=== PATIENT | female | born 1965 | race African-American/Black ===

== ENCOUNTER 2016-11-15 21:12 | Emergency (ER) | payer OTHER ==
[~2016-11-15] VITALS: Ht 167.6 cm; Wt 162.0 kg
[~2016-11-15 21:12] MED LIST: ADULT LOW DOSE81 M1 PO; ADVAIR 250/501 DISK IH; ALBUTEROL SULF8.5 GM IH; ATIVAN0.5 MG PO; Aspirin E.C. PO; Ativan PO; BREO ELLIPTA 21 EACH IH; CELEXA20 MG PO; CLEOCIN300 MG PO; CLINDAMYCIN HC300 MG PO; DOXYCYCLINE HY100 M1 PO; DOXYCYCLINE HY100 MG PO; Diflucan PO; FLONASE16 G1 BOTH NARES; FUROSEMIDE40 MG PO; GABAPENTIN300 MG PO; GLUCOPHAGE500 MG PO; KEFLEX500 MG PO; LISINOPRIL10 MG PO; LISINOPRIL5 MG PO; Lasix PO; METFORMIN HCL500 MG PO; MYCELEX10 MG PO; NON-ASPIRIN325 MG PO; OMNICEF300 MG PO; PHENERGAN VC1 ML PO; POTASSIUM-9999 MG PO; PREDNISONE20 MG PO; PREDNISONE5 MG PO; PRINIVIL10 MG PO; PRINIVIL20 MG PO; PROAIR HFA8.5 GM IH; PROVENTIL,2.5 MG/3 M IH; ROBITUSSIN AC,T10 ML PO; SINGULAIR10 MG PO; ST. JOSEPH ASPI81 MG PO; ULTRAM50 MG PO; VENTOLIN HFA18 GM IH; Vibramycin, Doryx PO; WOMEN'S DAILY1 EAC1 PO; ZOFRAN ODT4 MG PO; ZYRTEC10 M3 PO; Zestril,Prinivil PO; celeXA PO
[2016-11-15 21:32] LABS: HEMATOCRIT 36.6 % (36.0-46.0); MCH 27.2 PG (29.0-34.0); MCHC 31.1 G/DL (30.0-36.0); MCV 87.4 FL (83-99); MEAN PLAT.VOLUME 11.4 uM^3 (9.5-12.4); PLATELET COUNT 193 K/uL (156-360); RBC DIS.WIDTH-CV 14.2 % (11.8-14.6); RBC DIS.WIDTH-SD 44.9 % (39-53); RED BLOOD COUNT 4.19 M/uL (3.80-5.20); WHITE BLOOD COUNT 9.5 K/uL (4.1-10.2)
[2016-11-15 21:44] LABS: CHLORIDE 106 mEq/L (99-109); POTASSIUM 3.5 mEq/L (3.7-5.4); SODIUM 140 mEq/L (136-147)
[2016-11-15 21:46] LABS: GLUCOSE 101 mg/dL (70-99)
[2016-11-15 21:47] LABS: ANION GAP 7 MEQ/L (2-14)
[2016-11-15 21:50] LABS: GFR ESTIMATE (CALCULATED) > 59 mL/min/
[2016-11-15 21:51] LABS: UREA NITROGEN (BUN) 15 mg/dL (9-23)
[2016-11-15 21:57] LABS: TROP-I INTERPRETATION NEGATIVE; TROPONIN-I < 0.01 ng/mL (0.0-0.30)
[2016-11-15 23:08] VITALS: BP 146/69
== END 2016-11-15 23:08 | disposition home or self-care (01) ==
LOC: EME 21:12
PROVIDERS: Emergency Medicine
DX: I89.0 Lymphedema, not elsewhere classified (principal); M79.604 Pain in right leg; M79.605 Pain in left leg; J45.909 Unspecified asthma, uncomplicated; E11.9 Type 2 diabetes mellitus without complications; I10 Essential (primary) hypertension; Z79.82 Long term (current) use of aspirin
CPT/HCPCS: 71020; 80048; 83880; 84484; 85027

== ENCOUNTER 2016-12-31 15:02 | Observation (INO) | payer OTHER ==
[~2016-12-31] VITALS: Ht 170.2 cm; Wt 161.1 kg
[2016-12-31 17:22] LABS: HEMATOCRIT 37.2 % (36.0-46.0); MCH 27.7 PG (29.0-34.0); MCV 86.5 FL (83-99); MEAN PLAT.VOLUME 10.7 uM^3 (9.5-12.4); PLATELET COUNT 165 K/uL (156-360); RBC DIS.WIDTH-CV 14.5 % (11.8-14.6); RBC DIS.WIDTH-SD 45.9 % (39-53); WHITE BLOOD COUNT 9.3 K/uL (4.1-10.2)
[2016-12-31 17:30] LABS: CHLORIDE 104 mEq/L (99-109); POTASSIUM 3.8 mEq/L (3.7-5.4); SODIUM 139 mEq/L (136-147)
[2016-12-31 17:33] LABS: GLUCOSE 95 mg/dL (70-99)
[2016-12-31 17:34] LABS: ANION GAP 7 MEQ/L (2-14); TOTAL BILIRUBIN 0.9 mg/dL (0.0-1.0)
[2016-12-31 17:36] LABS: ALKALINE PHOSPHATASE 103 IU/L (3-129); GFR ESTIMATE (CALCULATED) > 59 mL/min/
[2016-12-31 17:37] LABS: UREA NITROGEN (BUN) 11 mg/dL (9-23)
[2016-12-31 17:40] LABS: LIPASE 37 U/L (1.0-51.0)
[2016-12-31 17:42] LABS: TROP-I INTERPRETATION NEGATIVE; TROPONIN-I < 0.01 ng/mL (0.0-0.30)
[2016-12-31] MEDS ORDERED: COZAAR25 MG PO (18:44)
[2016-12-31] MEDS ORDERED: WOMEN'S DAILY1 EAC4 PO (18:46)
[2016-12-31] MEDS ORDERED: CEFDINIR300 MG PO (18:59)
[2016-12-31 20:31] VITALS: BP 131/66
[2016-12-31 23:43] LABS: TROP-I INTERPRETATION NEGATIVE; TROPONIN-I < 0.01 ng/mL (0.0-0.30)
[2017-01-01 00:05] LABS: POINT-OF-CARE METER ID UU14162513
[2017-01-01 00:49] VITALS: BP 127/66
[2017-01-01 03:59] VITALS: BP 125/6
[2017-01-01 05:37] LABS: INTER. NORMALIZED RATIO 1.1; PROTHROMBIN TIME 10.7 (9.2-11.2); PTT 25.7 (25-32)
[2017-01-01 05:49] LABS: AMPHETAMINES QUANT VALUE 0 NG/ML; BARBITUATES QUANT VALUE 0 NG/ML; BENZODIAZEPINES QUANT VALUE 0 NG/ML; BENZODIAZEPINES, URINE SCREEN Negative (200 ng/mL); MARIJUANA QUANT VALUE 0 NG/ML; OPIATES QUANTITATIVE VALUE 0 NG/ML; PHENCYCLIDINE QUANT VALUE 0 NG/ML
[2017-01-01 06:48] LABS: TROP-I INTERPRETATION NEGATIVE; TROPONIN-I < 0.01 ng/mL (0.0-0.30)
[2017-01-01 07:45] VITALS: BP 114/56
[2017-01-01 07:50] LABS: ALKALINE PHOSPHATASE 113 IU/L (3-129); ANION GAP 9 MEQ/L (2-14); CHLORIDE 106 MEQ/L (99-109); GFR ESTIMATE (CALCULATED) > 59 mL/min/; GLUCOSE 98 mg/dL (70-99); SAMPLE HEMOLYSIS CHECK 0; SAMPLE ICTERIC CHECK 0; SAMPLE LIPEMIA CHECK 0; SODIUM 141 MEQ/L (136-147); UREA NITROGEN (BUN) 9 mg/dL (9-23)
[2017-01-01 08:02] LABS: POINT-OF-CARE METER ID UU14162513
[2017-01-01 08:05] LABS: HEMATOCRIT 32.9 % (36.0-46.0); MCH 27.7 PG (29.0-34.0); MCHC 32.2 G/DL (30.0-36.0); MCV 86.1 FL (83-99); MEAN PLAT.VOLUME 12.1 uM^3 (9.5-12.4); PLATELET COUNT 168 K/uL (156-360); RBC DIS.WIDTH-CV 14.7 % (11.8-14.6); RED BLOOD COUNT 3.82 M/uL (3.80-5.20)
[2017-01-01 08:22] LABS: WHITE BLOOD COUNT 6.5 K/uL (4.1-10.2)
[2017-01-01 09:54] LABS: HBSG INDEX 0.22; HPCA INDEX 0.12
[2017-01-01 09:55] LABS: ANTI-HEPATITIS A VIRUS (IGM) Nonreactive
[2017-01-01 09:56] LABS: ANTI-HEPATITIS B CORE (IGM) Nonreactive; HBC IgM INDEX 0.05
[2017-01-01 11:47] VITALS: BP 123/58
[2017-01-01 13:10] LABS: POINT-OF-CARE METER ID UU14162513
== END 2017-01-01 15:32 | disposition home or self-care (01) ==
LOC: EME 15:02 → EDOF 18:52 → 5WEST 18:52 → EDOF 19:26 → 5WEST 20:06
PROVIDERS: Hospitalist; Internal Medicine; Physician Assistant
DX: R07.9 Chest pain, unspecified (principal); M79.602 Pain in left arm; R51 Headache; I27.2 Other secondary pulmonary hypertension; R74.8 Abnormal levels of other serum enzymes; I89.0 Lymphedema, not elsewhere classified; E11.9 Type 2 diabetes mellitus without complications; I10 Essential (primary) hypertension; I25.10 Atherosclerotic heart disease of native coronary artery without angina pectoris; K21.9 Gastro-esophageal reflux disease without esophagitis; J45.909 Unspecified asthma, uncomplicated; I25.2 Old myocardial infarction; F41.9 Anxiety disorder, unspecified; F32.9 Major depressive disorder, single episode, unspecified; E66.01 Morbid (severe) obesity due to excess calories; Z95.5 Presence of coronary angioplasty implant and graft; G62.9 Polyneuropathy, unspecified; Z68.43 Body mass index [BMI] 50.0-59.9, adult
CPT/HCPCS: 71020; 76705; 80053; 80074; 80306 90; 82948; 83690; 84484; 85027; 85610; 85730; 93005; 93970; 94799; 99202; 99281; 99284; G0378; G0480; J1644; S0028

== ENCOUNTER 2017-02-25 20:48 | Emergency (ER) | payer OTHER ==
[~2017-02-25] VITALS: Ht 170.2 cm; Wt 160.0 kg
[~2017-02-25 20:48] MED LIST changes: +CEFDINIR300 MG PO; +COZAAR25 MG PO; +WOMEN'S DAILY1 EAC4 PO
[2017-02-25] MEDS ORDERED: KEFLEX500 MG PO (23:10)
[2017-02-25 23:29] VITALS: BP 157/89
== END 2017-02-25 23:30 | disposition home or self-care (01) ==
LOC: EME 20:48
DX: M79.672 Pain in left foot (principal); R60.0 Localized edema; I25.2 Old myocardial infarction; E11.9 Type 2 diabetes mellitus without complications; I10 Essential (primary) hypertension; J45.909 Unspecified asthma, uncomplicated; K21.9 Gastro-esophageal reflux disease without esophagitis; F32.9 Major depressive disorder, single episode, unspecified; Z79.84 Long term (current) use of oral hypoglycemic drugs; Z91.040 Latex allergy status; Z88.2 Allergy status to sulfonamides; Z88.1 Allergy status to other antibiotic agents
CPT/HCPCS: 99281; 99284

== ENCOUNTER 2017-03-26 21:50 | Emergency (ER) | payer OTHER ==
[~2017-03-26] VITALS: Ht 170.2 cm; Wt 161.2 kg
[2017-03-26 23:37] VITALS: BP 167/67
== END 2017-03-26 23:38 | disposition home or self-care (01) ==
LOC: EME 21:50
DX: S99.922A Unspecified injury of left foot, initial encounter (principal); W22.8XXA Striking against or struck by other objects, initial encounter; E11.40 Type 2 diabetes mellitus with diabetic neuropathy, unspecified; Z79.84 Long term (current) use of oral hypoglycemic drugs; Z79.82 Long term (current) use of aspirin
CPT/HCPCS: 99281; 99283

== ENCOUNTER → 2017-04-01 | Outpatient (CLI) | payer OTHER ==
[2017-04-01 10:43] LABS: POINT-OF-CARE METER ID UU14107333
== END | disposition home or self-care (01) ==
LOC: AMB 10:00
PROVIDERS: Internal Medicine
PROC: 0DJD8ZZ Inspection of Lower Intestinal Tract, Via Natural or Artificial Opening Endoscopic (ICD-10-PCS; principal; 2017-04-01)
DX: Z12.11 Encounter for screening for malignant neoplasm of colon (principal); K64.8 Other hemorrhoids; K62.89 Other specified diseases of anus and rectum; R74.8 Abnormal levels of other serum enzymes; K80.20 Calculus of gallbladder without cholecystitis without obstruction; I10 Essential (primary) hypertension; E11.40 Type 2 diabetes mellitus with diabetic neuropathy, unspecified; K21.9 Gastro-esophageal reflux disease without esophagitis; J45.909 Unspecified asthma, uncomplicated; I89.0 Lymphedema, not elsewhere classified; K22.9 Disease of esophagus, unspecified; E66.9 Obesity, unspecified; G47.33 Obstructive sleep apnea (adult) (pediatric); I27.2 Other secondary pulmonary hypertension; Z79.84 Long term (current) use of oral hypoglycemic drugs; F32.9 Major depressive disorder, single episode, unspecified; Z77.22 Contact with and (suspected) exposure to environmental tobacco smoke (acute) (chronic); Z88.2 Allergy status to sulfonamides; Z88.1 Allergy status to other antibiotic agents; Z88.6 Allergy status to analgesic agent; Z91.040 Latex allergy status
CPT/HCPCS: 82948; J2250

== ENCOUNTER 2017-04-12 02:59 | Emergency (ER) | payer OTHER ==
[~2017-04-12] VITALS: Ht 170.2 cm; Wt 160.7 kg
[2017-04-12 03:54] LABS: ADD MIUA? NO; BILIRUBIN NEGATIVE; BLOOD NEGATIVE; COLOR YELLOW ((YELLOW)); GLUCOSE (STRIP) NEGATIVE; KETONES NEGATIVE; LEUKOCYTES NEGATIVE; NITRITE NEGATIVE; PROTEIN (STRIP) 30; SPECIFIC GRAVITY 1.017 (1.000-1.030); UCUL ADDED? NO; UROBILINOGEN 0.2 MG/DL (0.2-1.0)
[2017-04-12] MEDS ORDERED: NORCO 5/3251 TABLET PO (04:06)
[2017-04-12] MEDS ORDERED: LIDODERM 5% P1 PATCH TD (04:06)
[2017-04-12 04:43] VITALS: BP 124/75
== END 2017-04-12 04:44 | disposition home or self-care (01) ==
LOC: EME → EDBD 02:59 → EME 04:44
PROVIDERS: Emergency Medicine
DX: M54.41 Lumbago with sciatica, right side (principal); G89.29 Other chronic pain; I10 Essential (primary) hypertension; J45.909 Unspecified asthma, uncomplicated; E11.9 Type 2 diabetes mellitus without complications; Z79.84 Long term (current) use of oral hypoglycemic drugs; Z79.82 Long term (current) use of aspirin
CPT/HCPCS: 72131; 81003; 99281; 99284; J2270

== ENCOUNTER 2017-05-22 11:54 | Emergency (ER) | payer OTHER ==
[~2017-05-22] VITALS: Ht 167.6 cm; Wt 162.6 kg
[~2017-05-22 11:54] MED LIST changes: +LIDODERM 5% P1 PATCH TD; +NORCO 5/3251 TABLET PO
[2017-05-22 13:52] LABS: CHLORIDE 107 mEq/L (99-109); POTASSIUM 4.1 mEq/L (3.7-5.4); SODIUM 140 mEq/L (136-147)
[2017-05-22 13:54] LABS: GLUCOSE 92 mg/dL (70-99)
[2017-05-22 13:55] LABS: ANION GAP 6 MEQ/L (2-14)
[2017-05-22 13:57] LABS: GFR ESTIMATE (CALCULATED) > 59 mL/min/
[2017-05-22 13:58] LABS: UREA NITROGEN (BUN) 12 mg/dL (9-23)
[2017-05-22 14:32] VITALS: BP 152/70
== END 2017-05-22 14:49 | disposition home or self-care (01) ==
LOC: EME 11:54
PROVIDERS: Physician Assistant
DX: M54.5 Low back pain (principal); R60.0 Localized edema; M54.2 Cervicalgia; M79.604 Pain in right leg; M79.605 Pain in left leg; I89.0 Lymphedema, not elsewhere classified; R26.2 Difficulty in walking, not elsewhere classified; J45.909 Unspecified asthma, uncomplicated; I10 Essential (primary) hypertension; E11.9 Type 2 diabetes mellitus without complications; Z79.84 Long term (current) use of oral hypoglycemic drugs; Z79.82 Long term (current) use of aspirin
CPT/HCPCS: 80048; 99281; 99283

== ENCOUNTER 2017-06-30 01:09 | Emergency (ER) | payer OTHER ==
[~2017-06-30] VITALS: Ht 167.6 cm; Wt 163.6 kg
[2017-06-30 02:54] VITALS: BP 121/66
== END 2017-06-30 02:55 | disposition home or self-care (01) ==
LOC: EME → EDBD 01:09 → EME 02:55
DX: B34.9 Viral infection, unspecified (principal); R51 Headache; R06.2 Wheezing; M54.2 Cervicalgia; R06.00 Dyspnea, unspecified; J44.9 Chronic obstructive pulmonary disease, unspecified; I10 Essential (primary) hypertension; E11.9 Type 2 diabetes mellitus without complications; Z79.84 Long term (current) use of oral hypoglycemic drugs; Z79.82 Long term (current) use of aspirin; Z88.1 Allergy status to other antibiotic agents; Z88.2 Allergy status to sulfonamides
CPT/HCPCS: 99281; 99284

== ENCOUNTER 2017-09-08 08:02 | Emergency (ER) | payer OTHER ==
[~2017-09-08] VITALS: Ht 167.6 cm; Wt 171.4 kg
[2017-09-08 09:23] LABS: HEMATOCRIT 37.6 % (36.0-46.0); MCH 28.1 PG (29.0-34.0); MCHC 31.9 G/DL (30.0-36.0); MCV 88.1 FL (83-99); RBC DIS.WIDTH-CV 14.2 % (11.8-14.6); RBC DIS.WIDTH-SD 45.9 % (39-53); RED BLOOD COUNT 4.27 M/uL (3.80-5.20); WHITE BLOOD COUNT 7.5 K/uL (4.1-10.2)
[2017-09-08 09:28] LABS: CHLORIDE 105 mEq/L (99-109); POTASSIUM 3.8 mEq/L (3.7-5.4); SODIUM 139 mEq/L (136-147)
[2017-09-08 09:29] LABS: GLUCOSE 127 mg/dL (70-99)
[2017-09-08 09:33] LABS: CREATININE 0.7 mg/dL (0.6-1.3); GFR ESTIMATE (CALCULATED) > 59 mL/min/
[2017-09-08 09:34] LABS: UREA NITROGEN (BUN) 11 mg/dL (9-23)
[2017-09-08 09:40] LABS: TROP-I INTERPRETATION NEGATIVE; TROPONIN-I < 0.01 ng/mL (0.0-0.30)
[2017-09-08 09:42] LABS: QUANTITATIVE HCG < 4.0 MIU/ML
[2017-09-08 10:01] LABS: PLAT.SUFFICIENCY ADEQUATE; PLATELET CLUMPS PRESENT - PLATELET COUNT APPEARS ADQ.; PLATELET COUNT UNABLE TO REPORT K/uL (156-360)
[2017-09-08 10:49] VITALS: BP 136/74
== END 2017-09-08 10:49 | disposition home or self-care (01) ==
LOC: EME 08:02
PROVIDERS: Physician Assistant
DX: R07.9 Chest pain, unspecified (principal); I25.2 Old myocardial infarction; I10 Essential (primary) hypertension; E11.9 Type 2 diabetes mellitus without complications; J44.9 Chronic obstructive pulmonary disease, unspecified; F32.9 Major depressive disorder, single episode, unspecified; K21.9 Gastro-esophageal reflux disease without esophagitis; F41.9 Anxiety disorder, unspecified; I89.0 Lymphedema, not elsewhere classified; Z79.84 Long term (current) use of oral hypoglycemic drugs; Z79.82 Long term (current) use of aspirin; Z91.040 Latex allergy status; Z88.1 Allergy status to other antibiotic agents; Z88.6 Allergy status to analgesic agent; Z88.2 Allergy status to sulfonamides; I27.20 Pulmonary hypertension, unspecified
CPT/HCPCS: 71045; 80048; 84484; 84702; 85027; 93005; 99281; 99285

== ENCOUNTER 2017-09-12 13:59 | Emergency (ER) | payer OTHER ==
[~2017-09-12] VITALS: Ht 167.6 cm; Wt 165.9 kg
[2017-09-12 14:31] LABS: BASOPHIL (%) 0.4 % (0-1); EOSINOPHIL (%) 2.4 % (0-5); EOSINOPHIL COUNT 0.2 K/uL (0-0.3); HEMATOCRIT 35.5 % (36.0-46.0); HEMOGLOBIN 11.4 G/DL (11.9-15.5); IMMATURE GRANULOCYTE (%) 0.4 % (0.0-0.7); LYMPHOCYTE (%) 30.8 % (15-42); LYMPHOCYTE COUNT 2.5 K/uL (1.0-2.8); MCH 28.1 PG (29.0-34.0); MCHC 32.1 G/DL (30.0-36.0); MCV 87.4 FL (83-99); MONOCYTE (%) 8.7 % (3-12); MONOCYTE COUNT 0.7 K/uL (0-0.8); NEUTROPHIL (%) 57.3 % (45-76); NEUTROPHIL COUNT 4.7 K/uL (1.8-6.4); RBC DIS.WIDTH-CV 14.3 % (11.8-14.6); RBC DIS.WIDTH-SD 45.9 % (39-53); RED BLOOD COUNT 4.06 M/uL (3.80-5.20); WHITE BLOOD COUNT 8.2 K/uL (4.1-10.2)
[2017-09-12 14:33] LABS: PLATELET COUNT 159 K/uL (156-360)
[2017-09-12 14:41] LABS: ALBUMIN 3.7 g/dL (3.2-4.8); CHLORIDE 106 mEq/L (99-109); POTASSIUM 3.6 mEq/L (3.7-5.4); SODIUM 138 mEq/L (136-147)
[2017-09-12 14:42] LABS: MAGNESIUM 1.9 mg/dL (1.3-2.7)
[2017-09-12 14:43] LABS: GLUCOSE 111 mg/dL (70-99); TOTAL PROTEIN 7.6 g/dL (6.4-8.3)
[2017-09-12 14:45] LABS: TOTAL BILIRUBIN 0.4 mg/dL (0.0-1.0)
[2017-09-12 14:47] LABS: ALKALINE PHOSPHATASE 69 IU/L (3-129); CREATININE 0.7 mg/dL (0.6-1.3); GFR ESTIMATE (CALCULATED) > 59 mL/min/
[2017-09-12 14:48] LABS: UREA NITROGEN (BUN) 8 mg/dL (9-23)
[2017-09-12 14:49] LABS: AST (GOT) 22 IU/L (2-34)
[2017-09-12 14:50] LABS: ALT (GPT) 27 IU/L (3-49); CREATINE KINASE 133 IU/L (1-294); TOTAL CK 133 IU/L (1-294)
[2017-09-12 14:51] LABS: TROP-I INTERPRETATION NEGATIVE; TROPONIN-I < 0.01 ng/mL (0.0-0.30)
[2017-09-12 14:58] LABS: CK-MB 1.2 ng/mL (0.0-4.9); CKMB RELATIVE INDEX 0.9 (0.0-3.9)
[2017-09-12] MEDS ORDERED: PREDNISONE20 MG PO (16:21)
[2017-09-12 16:55] VITALS: BP 151/83
== END 2017-09-12 16:56 | disposition home or self-care (01) ==
LOC: EME 13:59
PROVIDERS: Emergency Medicine
DX: J44.1 Chronic obstructive pulmonary disease with (acute) exacerbation (principal); R60.0 Localized edema; I27.20 Pulmonary hypertension, unspecified; R94.31 Abnormal electrocardiogram [ECG] [EKG]; K21.9 Gastro-esophageal reflux disease without esophagitis; I10 Essential (primary) hypertension; E11.40 Type 2 diabetes mellitus with diabetic neuropathy, unspecified; I25.2 Old myocardial infarction; F41.9 Anxiety disorder, unspecified; F32.9 Major depressive disorder, single episode, unspecified; Z79.84 Long term (current) use of oral hypoglycemic drugs; Z79.82 Long term (current) use of aspirin; Z87.2 Personal history of diseases of the skin and subcutaneous tissue; Z88.2 Allergy status to sulfonamides; Z88.6 Allergy status to analgesic agent; Z88.1 Allergy status to other antibiotic agents
CPT/HCPCS: 71046; 80053; 82550; 82553; 83735; 83880; 84484; 85025; 93005; 94640; 99281; 99284; J1940; J7512

== ENCOUNTER 2017-11-05 11:24 | Emergency (ER) | payer OTHER ==
[~2017-11-05] VITALS: Ht 167.6 cm; Wt 172.5 kg
[2017-11-05 11:49] LABS: BASOPHIL (%) 0.2 % (0-1); EOSINOPHIL (%) 2.8 % (0-5); EOSINOPHIL COUNT 0.2 K/uL (0-0.3); HEMATOCRIT 34.7 % (36.0-46.0); HEMOGLOBIN 11.2 G/DL (11.9-15.5); IMMATURE GRANULOCYTE (%) 0.2 % (0.0-0.7); LYMPHOCYTE COUNT 2.1 K/uL (1.0-2.8); MCH 28.4 PG (29.0-34.0); MCHC 32.3 G/DL (30.0-36.0); MCV 87.8 FL (83-99); MONOCYTE (%) 6.8 % (3-12); MONOCYTE COUNT 0.6 K/uL (0-0.8); NEUTROPHIL COUNT 5.2 K/uL (1.8-6.4); PLATELET COUNT 151 K/uL (156-360); RBC DIS.WIDTH-CV 14.1 % (11.8-14.6); RBC DIS.WIDTH-SD 45.7 % (39-53); RED BLOOD COUNT 3.95 M/uL (3.80-5.20); WHITE BLOOD COUNT 8.1 K/uL (4.1-10.2)
[2017-11-05 11:58] LABS: CHLORIDE 106 mEq/L (99-109); SODIUM 140 mEq/L (136-147)
[2017-11-05 11:59] LABS: GLUCOSE 104 mg/dL (70-99)
[2017-11-05 12:04] LABS: CREATININE 0.7 mg/dL (0.6-1.3); GFR ESTIMATE (CALCULATED) > 59 mL/min/; UREA NITROGEN (BUN) 11 mg/dL (9-23)
[2017-11-05 15:07] VITALS: BP 153/63
[2017-11-06] MEDS ORDERED: BREO ELLIPTA 21 EACH IH (10:13)
[2017-11-06] MEDS ORDERED: LASIX40 MG PO (10:14)
[2017-11-06] MEDS ORDERED: COZAAR25 MG PO (10:16)
== END 2017-11-05 15:08 | disposition home or self-care (01) ==
LOC: EME 11:24
PROVIDERS: Emergency Medicine
DX: L03.115 Cellulitis of right lower limb (principal); L03.116 Cellulitis of left lower limb; I89.0 Lymphedema, not elsewhere classified; E11.9 Type 2 diabetes mellitus without complications; Z79.84 Long term (current) use of oral hypoglycemic drugs; I10 Essential (primary) hypertension; I25.2 Old myocardial infarction; J45.909 Unspecified asthma, uncomplicated; F32.9 Major depressive disorder, single episode, unspecified; F41.9 Anxiety disorder, unspecified; K21.9 Gastro-esophageal reflux disease without esophagitis; Z79.82 Long term (current) use of aspirin; Z91.040 Latex allergy status; Z88.2 Allergy status to sulfonamides; Z88.1 Allergy status to other antibiotic agents
CPT/HCPCS: 80048; 85025; 99281; 99285; J0696

== ENCOUNTER 2017-11-21 00:42 | Observation (INO) | payer OTHER ==
[~2017-11-21] VITALS: Ht 167.6 cm; Wt 175.0 kg
[~2017-11-21 00:42] MED LIST changes: +LASIX40 MG PO
[2017-11-21 01:22] LABS: HEMATOCRIT 35.6 % (36.0-46.0); HEMOGLOBIN 11.4 G/DL (11.9-15.5); MCH 28.3 PG (29.0-34.0); MCV 88.3 FL (83-99); PLATELET COUNT 186 K/uL (156-360); RBC DIS.WIDTH-CV 14.1 % (11.8-14.6); RBC DIS.WIDTH-SD 45.6 % (39-53); RED BLOOD COUNT 4.03 M/uL (3.80-5.20)
[2017-11-21 01:23] LABS: CARBON DIOXIDE (BICARBONATE) 34.4 MEQ/L (20-31)
[2017-11-21 01:35] LABS: CHLORIDE 104 mEq/L (99-109); POTASSIUM 3.6 mEq/L (3.7-5.4); SODIUM 143 mEq/L (136-147)
[2017-11-21 01:36] LABS: GLUCOSE 113 mg/dL (70-99)
[2017-11-21 01:40] LABS: CREATININE 0.8 mg/dL (0.6-1.3); GFR ESTIMATE (CALCULATED) > 59 mL/min/
[2017-11-21 01:41] LABS: UREA NITROGEN (BUN) 12 mg/dL (9-23)
[2017-11-21 01:45] LABS: TROP-I INTERPRETATION NEGATIVE; TROPONIN-I < 0.01 ng/mL (0.0-0.30)
[2017-11-21 07:55] LABS: HEMATOCRIT 34.4 % (36.0-46.0); HEMOGLOBIN 11.3 G/DL (11.9-15.5); MCH 28.8 PG (29.0-34.0); MCHC 32.8 G/DL (30.0-36.0); MCV 87.5 FL (83-99); PLATELET COUNT 204 K/uL (156-360); RBC DIS.WIDTH-SD 45.1 % (39-53); RED BLOOD COUNT 3.93 M/uL (3.80-5.20); WHITE BLOOD COUNT 8.5 K/uL (4.1-10.2)
[2017-11-21 08:20] LABS: ALBUMIN 3.8 g/dL (3.2-4.8)
[2017-11-21 08:23] LABS: GLUCOSE 115 mg/dL (70-99); TOTAL PROTEIN 7.8 g/dL (6.4-8.3)
[2017-11-21 08:24] LABS: TROP-I INTERPRETATION NEGATIVE; TROPONIN-I < 0.01 ng/mL (0.0-0.30)
[2017-11-21 08:25] LABS: TOTAL BILIRUBIN 0.4 mg/dL (0.0-1.0)
[2017-11-21 08:26] LABS: ALKALINE PHOSPHATASE 63 IU/L (3-129); CREATININE 0.8 mg/dL (0.6-1.3); GFR ESTIMATE (CALCULATED) > 59 mL/min/
[2017-11-21 08:27] LABS: UREA NITROGEN (BUN) 11 mg/dL (9-23)
[2017-11-21 08:28] LABS: AST (GOT) 20 IU/L (2-34)
[2017-11-21 08:29] LABS: ALT (GPT) 14 IU/L (3-49)
[2017-11-21 08:34] LABS: CHLORIDE 105 mEq/L (99-109); SODIUM 142 mEq/L (136-147)
[2017-11-21] MEDS ORDERED: BREO ELLIPTA I1 EACH IH (08:53)
[2017-11-21] MEDS ORDERED: LASIX80 MG PO (08:54)
[2017-11-21] MEDS ORDERED: COZAAR50 MG PO ×2 (08:55)
[2017-11-21] MEDS ORDERED: VOLTAREN75 MG PO (09:00)
[2017-11-21] MEDS ORDERED: KEFLEX500 MG PO (09:00)
[2017-11-21] MEDS ORDERED: POTASSIUM-9999 MG PO (09:01)
[2017-11-21] MEDS ORDERED: ZANTAC150 MG PO (09:02)
[2017-11-21] MEDS ORDERED: VITAMIN D5000 UNI1 PO (09:02)
[2017-11-21 13:42] LABS: TROP-I INTERPRETATION NEGATIVE; TROPONIN-I < 0.01 ng/mL (0.0-0.30)
[2017-11-21 15:40] VITALS: BP 153/67
[2017-11-21 23:42] VITALS: BP 131/62
[2017-11-22 03:49] VITALS: BP 170/89; BP 174/97
[2017-11-22 04:18] VITALS: BP 142/75
[2017-11-22 07:13] VITALS: BP 126/69
[2017-11-22 07:26] VITALS: BP 131/67
[2017-11-22] MEDS ORDERED: PREDNISONE20 MG PO (09:23)
[2017-11-22 10:46] VITALS: BP 133/62
[2017-11-22 15:51] VITALS: BP 133/73
[2017-11-25 14:28] LABS: HEMOGLOBIN A1c (GLYCOHEMOGLOB) 6.8 % (Below 5.7)
== END 2017-11-22 17:07 | disposition home or self-care (01) ==
LOC: EME 00:42 → EDOF 03:03 → 5WEST 03:03 → ENRESERV 03:13 → 5WEST 15:18 → ENPENDDIS 11-22 09:33 → 5WEST 11-22 17:07
PROVIDERS: Emergency Medicine; Internal Medicine
DX: R07.9 Chest pain, unspecified (principal); I89.0 Lymphedema, not elsewhere classified; E87.6 Hypokalemia; E66.01 Morbid (severe) obesity due to excess calories; Z68.44 Body mass index [BMI] 60.0-69.9, adult; G47.33 Obstructive sleep apnea (adult) (pediatric); I10 Essential (primary) hypertension; E11.9 Type 2 diabetes mellitus without complications; I25.10 Atherosclerotic heart disease of native coronary artery without angina pectoris; Z95.5 Presence of coronary angioplasty implant and graft; I27.20 Pulmonary hypertension, unspecified; F41.9 Anxiety disorder, unspecified; F32.9 Major depressive disorder, single episode, unspecified; I87.8 Other specified disorders of veins; Z86.19 Personal history of other infectious and parasitic diseases; J45.909 Unspecified asthma, uncomplicated; E78.5 Hyperlipidemia, unspecified; Z83.3 Family history of diabetes mellitus; Z80.49 Family history of malignant neoplasm of other genital organs; Z88.0 Allergy status to penicillin; Z88.2 Allergy status to sulfonamides; Z88.6 Allergy status to analgesic agent; Z91.040 Latex allergy status; Z79.82 Long term (current) use of aspirin; Z79.84 Long term (current) use of oral hypoglycemic drugs
CPT/HCPCS: 71045; 78582; 80048; 80053; 82803; 82948; 83036; 83605; 83880; 84484; 85027; 85379; 87040; 87641; 93005; 93306; 94640; 94640 76; 99202; 99281; 99285; A9540; A9567; G0378; J1644; J1815; J7512

== ENCOUNTER 2018-01-01 20:19 | Emergency (ER) | payer OTHER ==
[~2018-01-01] VITALS: Ht 167.6 cm; Wt 179.2 kg
[~2018-01-01 20:19] MED LIST changes: +BREO ELLIPTA I1 EACH IH; +COZAAR50 MG PO; +LASIX80 MG PO; +VITAMIN D5000 UNI1 PO; +VOLTAREN75 MG PO; +ZANTAC150 MG PO
[2018-01-01 21:00] VITALS: BP 147/90
[2018-01-01 21:57] LABS: HEMATOCRIT 35.6 % (36.0-46.0); HEMOGLOBIN 11.5 G/DL (11.9-15.5); MCH 28.2 PG (29.0-34.0); MCHC 32.3 G/DL (30.0-36.0); MCV 87.3 FL (83-99); PLATELET COUNT 176 K/uL (156-360); RBC DIS.WIDTH-CV 13.8 % (11.8-14.6); RBC DIS.WIDTH-SD 44.3 % (39-53); RED BLOOD COUNT 4.08 M/uL (3.80-5.20); WHITE BLOOD COUNT 7.8 K/uL (4.1-10.2)
[2018-01-01 22:08] LABS: CHLORIDE 103 mEq/L (99-109); POTASSIUM 3.7 mEq/L (3.7-5.4); SODIUM 140 mEq/L (136-147)
[2018-01-01 22:10] LABS: GLUCOSE 106 mg/dL (70-99)
[2018-01-01 22:14] LABS: CREATININE 0.7 mg/dL (0.6-1.3); GFR ESTIMATE (CALCULATED) > 59 mL/min/
[2018-01-01 22:15] LABS: UREA NITROGEN (BUN) 11 mg/dL (9-23)
[2018-01-01] MEDS ORDERED: ARTHRITIS PAIN57 G1 TP (23:05)
== END 2018-01-01 23:07 | disposition home or self-care (01) ==
LOC: EME 20:19
PROVIDERS: Emergency Medicine
DX: I89.0 Lymphedema, not elsewhere classified (principal); E11.40 Type 2 diabetes mellitus with diabetic neuropathy, unspecified; Z79.84 Long term (current) use of oral hypoglycemic drugs; I10 Essential (primary) hypertension; I25.2 Old myocardial infarction; F41.9 Anxiety disorder, unspecified; F32.9 Major depressive disorder, single episode, unspecified; J45.909 Unspecified asthma, uncomplicated; K21.9 Gastro-esophageal reflux disease without esophagitis; I27.20 Pulmonary hypertension, unspecified; Z88.2 Allergy status to sulfonamides; Z88.1 Allergy status to other antibiotic agents; Z91.040 Latex allergy status
CPT/HCPCS: 71046; 80048; 83880; 85027; 99281; 99284

== ENCOUNTER 2018-02-05 22:56 | Emergency (ER) | payer OTHER ==
[~2018-02-05] VITALS: Ht 167.6 cm; Wt 179.3 kg
[~2018-02-05 22:56] MED LIST changes: +ARTHRITIS PAIN57 G1 TP
[2018-02-05 23:41] LABS: HEMATOCRIT 35.3 % (36.0-46.0); HEMOGLOBIN 11.3 G/DL (11.9-15.5); MCH 28.1 PG (29.0-34.0); MCV 87.8 FL (83-99); PLATELET COUNT 140 K/uL (156-360); RBC DIS.WIDTH-CV 14.3 % (11.8-14.6); RBC DIS.WIDTH-SD 46.1 % (39-53); RED BLOOD COUNT 4.02 M/uL (3.80-5.20); WHITE BLOOD COUNT 8.7 K/uL (4.1-10.2)
[2018-02-05 23:53] LABS: CHLORIDE 105 mEq/L (99-109); POTASSIUM 3.9 mEq/L (3.7-5.4); SODIUM 142 mEq/L (136-147)
[2018-02-05 23:55] LABS: GLUCOSE 112 mg/dL (70-99)
[2018-02-05 23:59] LABS: CREATININE 0.7 mg/dL (0.6-1.3); GFR ESTIMATE (CALCULATED) > 59 mL/min/; UREA NITROGEN (BUN) 10 mg/dL (9-23)
[2018-02-06] MEDS ORDERED: AMOXICILLIN500 MG PO (01:26)
[2018-02-06] MEDS ORDERED: AFRIN,GENASAL D15 ML BOTH NARES (01:26)
[2018-02-06] MEDS ORDERED: BENADRYL25 MG PO (01:26)
[2018-02-06 02:23] VITALS: BP 151/69
== END 2018-02-06 02:28 | disposition home or self-care (01) ==
LOC: EME 22:56
DX: J01.00 Acute maxillary sinusitis, unspecified (principal); J31.0 Chronic rhinitis; Z99.89 Dependence on other enabling machines and devices; J45.909 Unspecified asthma, uncomplicated; G47.30 Sleep apnea, unspecified; F32.9 Major depressive disorder, single episode, unspecified; E11.40 Type 2 diabetes mellitus with diabetic neuropathy, unspecified; Z79.84 Long term (current) use of oral hypoglycemic drugs; I10 Essential (primary) hypertension; I25.2 Old myocardial infarction; F41.9 Anxiety disorder, unspecified; K21.9 Gastro-esophageal reflux disease without esophagitis; I27.20 Pulmonary hypertension, unspecified; Z79.82 Long term (current) use of aspirin; Z88.2 Allergy status to sulfonamides; Z88.1 Allergy status to other antibiotic agents; Z91.040 Latex allergy status
CPT/HCPCS: 71046; 80048; 85027; 99281; 99284